=== PATIENT | male | born 1965 ===

== ENCOUNTER → 2022-01-17 15:54 | Outpatient (BNVA) | payer BC, SELFPAY | PROVIDERS: PCP Internal Medicine; Referring Provider Internal Medicine; Visit Provider Surgery | DX: Z13.89 Encounter for screening for other disorder (principal) ==

== ENCOUNTER 2022-06-29 06:14 | Day surgery (SDC) | payer BC, SELFPAY ==
[2022-06-25 14:55] VITALS: BMI 27.8
--- NOTE | 2022-06-28 14:11 | P.CONAN_ITS ---
Documented by User: Ioana Linton NP 06/28/22 14:12 HPI - Anesthesia Eval Consult details Narrative: 56yo M for Colonoscopy with Poss Polypectomy PMFSH Active Problems Active Problems: All Active Problems (Updated 01/17/22 @ 16:30 by Davis Mora MD) Physical exam (Acute) COVID-19 virus infection (Acute) Hyperlipidemia (Acute) Tubular adenoma (Acute) Plantar fasciitis (Acute) History of adenomatous polyp of colon (Acute) Past Medical History Medical History History of adenomatous polyp of colon Family History Family History Mother Breast cancer Surgical History Surgical History H/O colonoscopy History of appendectomy History of repair of ACL Social History Social History Housing: House Alcohol intake: current Alcohol intake frequency: a few times a month Alcohol type: beer Patient Tobacco Use Status: Never used Tobacco e-Cigarette/Vaping Use: Never Used Second Hand Smoke Exposure: No Use of substances other than those prescribed or required for medical reasons: No Are you DNR?: No Advance Directives: No Advance Directives Information Provided: Yes service: No 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 Cognitive needs: No Hearing needs: No Vision needs: Yes (Glasses) Meds Allergies Allergy/AdvReac Type Severity Reaction Status Date / Time No Known Allergies Allergy Verified 06/29/22 06:38 [No Known Allergies*] Exam Exam Date and Time: June 28, 2022 1411 Height,Weight and Vital Signs: Height 5 ft 11 in Weight 90.718 kg Assessment and Plan Assessment Anesthesia Assessment: Chart Reviewed Documented by User: Madison Cuadra MD 06/29/22 07:54 [facility] Past Medical History Medical History History of adenomatous polyp of colon Family History Family History Mother Breast cancer Family history of problems with anesthesia: No Surgical History Surgical History H/O colonoscopy History of appendectomy History of repair of ACL History of Problems with Anesthesia: Yes (Post-op nausea ) Social History Social History Housing: House Alcohol intake: current Alcohol intake frequency: a few times a month Alcohol type: beer Patient Tobacco Use Status: Never used Tobacco e-Cigarette/Vaping Use: Never Used Second Hand Smoke Exposure: No Use of substances other than those prescribed or required for medical reasons: No Are you DNR?: No Advance Directives: No Advance Directives Information Provided: Yes service: No 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 Cognitive needs: No Hearing needs: No Vision needs: Yes (Glasses) Meds Allergies Allergy/AdvReac Type Severity Reaction Status Date / Time No Known Allergies Allergy Verified 06/29/22 06:38 [No Known Allergies*] Exam Height,Weight and Vital Signs: Height 5 ft 11 in Weight 90.718 kg Vital Signs Temp Pulse Resp BP Pulse Ox O2 Del Method 06/29/22 06:44 97.4 F 57 16 121/77 99 Room Air Airway Mallampati Class: III TM Dist: >3cm Neck ROM: Full Loose/Missing/Broken Teeth: No (Implants intact) Heart: RRR Lungs: CTAB Assessment and Plan Assessment Anesthesia Assessment: Anesthesia Plan Discussed Final Anesthetic Review Family History of Problems with Anesthesia: No History of Problems with Anesthesia: Yes (Post-op nausea ) NPO: No ASA Class: II Final Preanesthetic Review: No Changes in Pt Med Stat, Meds/Allgs Chart Reviewed, Consent Obtained/Reviewed and Anes Risks/Benef Reviewed Patient Risk: Low Procedure Risk: Low Assessment/Block/Sedation in SS: Assess/Block/Sedation-SS Anesthetic Plan Anesthetic Plan: MAC: Disposition: Standard PACU
[2022-06-29 06:44] VITALS: BP 121/77; PULSE 57; RESP 16; TEMP 36.3; O2SAT 99; BMI 26.7
[2022-06-29] MEDS: Lactated Ringers 1,000 ML 100 ML IVCONT (07:05)
--- NOTE | 2022-06-29 07:21 | MHC.SHP ---
Pre-Procedural Eval Section A Date of Service: 06/29/22 The patient is an INPATIENT: No Changes since office visit: No Cold of Flu in the past 2 weeks, No New Medical Problems, No Changes in Medication and No Patient answered all questions The History & Physical has been completed within 30 days and I have reviewed it.: Yes Section B Chief Complaint: Personal history of colonic polyps Allergies: Allergies Allergy/AdvReac Type Severity Reaction Status Date / Time No Known Allergies Allergy Verified 06/29/22 06:38 [No Known Allergies*] Plan I have reviewed the history and physical and performed a pertinent physical examination on my patient. No changes have occurred unless specified.
--- NOTE | 2022-06-29 07:24 | MHC.SHP ---
Pre-Procedural Eval Section A Date of Service: 06/29/22 Section B Chief Complaint: Personal history of colonic polyps Details of Present Illness: had tubular adenoma in 2016 Relevant Family History (Specify if Yes): No Relevant Social History: None Present Medications: see Short Stay Collaborative assessment Medical History: Significant History (hyperlipidemia) Allergies: Allergies Allergy/AdvReac Type Severity Reaction Status Date / Time No Known Allergies Allergy Verified 06/29/22 06:38 [No Known Allergies*] Review of Systems Sugical H&P ROS: Negative: Constitution, Cardiovascular, Respiratory, Neurological, Psychiatric, Hem-Onc, Allergic/Immunologic, Gastrointestinal, Genitourinary, Musculoskeletal, Integumentary, Endocrine and Eyes/Ears/Nose/Throat Exam Surgical H&P Exam: Normal: HEENT, Normal: Heart, Normal: Lungs, Normal: Extremities, Normal: Abdomen, Normal: Skin and Normal: Neurological Plan Diagnosis/Plan: Unchanged I have reviewed the history and physical and performed a pertinent physical examination on my patient. No changes have occurred unless specified.
--- NOTE | 2022-06-29 07:56 | W.PM.OPN ---
Operative Note Operative Note Date of Service: 06/29/22 Narrative: Preop diagnosis: History of tubular adenoma Postop diagnosis: Normal colonoscopy findings Procedure: Colonoscopy for screening Surgeon: Davis Mora MD The patient is a 56-year-old male who had a tubular adenoma in 2016. I had recommended a short bevel follow-up colonoscopy. He understood the technique of the procedure as well as the risks, benefits, and alternatives. The patient was brought to the operating room and placed in left lateral decubitus position under monitored anesthesia care. A surgical time-out was done. A full digital rectal exam was done and this did not reveal any significant anal lesions. The tip of the Olympus colonoscope was gently introduced through the anal orifice advanced with insufflation all the way to the cecum. The cecum was intubated. The cecum was identified by visualization of the ileocecal valve as well as the appendiceal orifice. The cecal mucosa was unremarkable. The scope was gradually withdrawn with careful examination of the entire colonic mucosa being done with scope withdrawal. The patient had adequate bowel prep so it was unlikely that any lesion may have been missed. The rectum was reached and there were no lesions seen. The anal canal was unremarkable. The scope was then withdrawn completely with desufflation The patient tolerated Theprocedure well. There were no immediate complications. [His] next colonoscopy may be in the next [10] years.
[2022-06-29 08:02] VITALS: BP 116/69; PULSE 56; RESP 16; TEMP 37.3; O2SAT 100
[2022-06-29 08:17] VITALS: BP 118/80; PULSE 55; RESP 16; TEMP 36.6; O2SAT 99
== END 2022-06-29 08:50 | disposition home or self-care (01) ==
PROVIDERS: PCP Internal Medicine; Visit Provider Surgery
PROC: 0DBE8ZZ Excision of Large Intestine, Via Natural or Artificial Opening Endoscopic (ICD-10-PCS; CPT 45378; principal; 2022-06-29 07:30)
DX: Z12.11 Encounter for screening for malignant neoplasm of colon (principal); Z86.010 Personal history of colon polyps; E78.5 Hyperlipidemia, unspecified; M72.2 Plantar fascial fibromatosis; Z86.16 Personal history of COVID-19
CPT/HCPCS: 45378

== ENCOUNTER 2023-01-29 05:57 | Outpatient (REF) | payer BC, SELFPAY ==
[2023-01-29 06:07] LABS: MANUAL DIFF FLAG NO
[2023-01-29 07:34] LABS: Basophils Percent Auto 0.2 % (0-2); Eosinophils Absolute Auto 0.1 X10*3/uL (0.0-0.4); Eosinophils Percent Auto 1.7 % (0-4); Hemoglobin 14.9 g/dl (14.0-18.0); Imm Gran Abs Auto 0.01 X10*3/uL (0.00-0.03); Imm Gran Pct Auto 0.2 % (0.0-0.4); Lymphocytes Absolute Auto 1.2 X10*3/uL (1.2-4.9); Lymphocytes Percent Auto 30.1 % (20-40); Mean Corpuscular HGB Conc 33.9 g/dl (31.0-36.0); Mean Corpuscular Hemoglobin 30.9 pg (27.0-33.0); Mean Corpuscular Volume 91.3 fL (80.0-98.0); Mean Platelet Volume 10.1 fL (9.4-12.4); Monocytes Absolute Auto 0.4 X10*3/uL (0.1-1.2); Monocytes Percent Auto 10.5 % (2-11); Neutrophils Absolute Auto 2.3 x10*3/uL (2.0-8.3); Neutrophils Percent Auto 57.3 % (45-73); Platelet Count 180 X10*3/uL (160-400); Red Blood Count 4.82 X10*6/uL (4.60-5.80); Red Cell Distribution Width 12.6 % (11.0-16.0); White Blood Count 4.1 X10*3/uL (4.8-10.8)
[2023-01-29 07:35] LABS: Appearance Urine Clear; Color Urine Yellow; Glucose Urine UA Negative (Negative); Leukocyte Esterase Urine Negative (Negative); Nitrite Urine Negative (Negative); PH 5.5 (5.0-9.0); Specific Gravity - Urine >= 1.030 (1.005-1.025); Urine Blood Negative (Negative); Urine Ketones Negative (Negative); Urine Protein Negative (Neg-Trace)
[2023-01-29 12:18] LABS: Alanine Aminotransferase 26 U/L (0-40); Albumin Level 4.2 g/dL (3.5-5.0); Alkaline Phosphatase 39 U/L (39-117); Anion Gap 8 (12-20); Aspartate Amino Transferase 30 U/L (5-37); Bilirubin Total 0.9 mg/dL (0.0-1.0); Blood Urea Nitrogen 22 mg/dL (9-16); Calcium 9.3 mg/dL (8.4-10.2); Carbon Dioxide 30 mmol/L (22-29); Chloride 107 mmol/L (96-108); Cholesterol 232 mg/dL; Estimated Glomerular Filt Rate > 60; Glucose Fasting 91 mg/dL (60-99); HDL Cholesterol 57 mg/dL; LDL Cholesterol Calculated 158 mg/dl; Potassium 4.3 mmol/L (3.3-5.1); Sodium 141 mmol/L (135-145); Total Protein 6.6 g/dL (6.5-8.0); Triglycerides 89 mg/dL
[2023-01-29 12:20] LABS: Prostate Specific Antigen Scr 0.43 ng/mL (<0.05-4.0); TSH reflex Free T4 1.03 uIU/mL (0.32-4.0); Vitamin D 25-OH Total 25.7 ng/mL (>30)
== END 2023-01-29 05:58 | disposition home or self-care (01) ==
LOC: HO.LAB 05:57
PROVIDERS: PCP Internal Medicine; Visit Provider Internal Medicine
DX: Z00.00 Encounter for general adult medical examination without abnormal findings (principal); Z12.5 Encounter for screening for malignant neoplasm of prostate; R30.0 Dysuria; E55.9 Vitamin D deficiency, unspecified; E78.00 Pure hypercholesterolemia, unspecified
CPT/HCPCS: 36415; 80053; 80061; 81003; 82306; 84153; 84443; 85025

== ENCOUNTER 2023-06-11 12:25 | Outpatient (REF) | payer BC, SELFPAY | END 2023-06-11 12:26 | disposition home or self-care (01) | LOC: HO.SH 12:25 | PROVIDERS: Visit Provider Internal Medicine | DX: Z01.118 Encounter for examination of ears and hearing with other abnormal findings (principal); H90.3 Sensorineural hearing loss, bilateral; H93.13 Tinnitus, bilateral | CPT/HCPCS: 92557; 92567 ==

== ENCOUNTER 2023-08-07 15:42 | Outpatient (AMB) | payer BC, SELFPAY ==
[2023-08-07 15:46] VITALS: BP 148/80; PULSE 59; O2SAT 99; BMI 28.4
--- NOTE | 2023-08-07 15:46 | MHC.PC.OV ---
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 Accompanied by: Self / Same As Patient Allergies atorvastatin Adverse Reaction (Intermediate, Uncoded 08/07/23 16:25) muscle weakness, cramps Medication List - Last Reconciled 08/08/23 by Sonu Arauz MD No Known Home Meds Tobacco use date assessed: 08/07/23 Dental Screening Dental Screen Date: 08/07/23 Did you have a dental visit in the last 12 months?: Yes Did you have a dental problem in the last 6 months where you did not have access to dental care?: No Was dental information given to patient?: Patient has dentist HPI 6 month f/u HPI Details Patient comes in today for his follow up visit States that he feels okay He denies any headaches or dizziness Denies any chest pains, no SOB No nausea/vomiting, no abdominal pain No change in bowel habits noted Notes (+) on and off cramping pain over the medial aspect of his thighs lately - notes that these seem to occur more often at night when he is home from work Denies any recent injury or trauma to his lower extremities and states that he has not noticed any swelling of his feet and denies any cramping pain in his lower extremities when he is walking or moving about Had his follow up labs done back in January 2023 after his last visit and has not had any other labs done since [facility] Medical History Overweight (BMI 25.0-29.9) Pure hypercholesterolemia History of adenomatous polyp of colon Surgical History History of colonoscopy (~06/29/22) H/O colonoscopy (~09/2015) History of appendectomy History of repair of ACL Family History Mother Breast cancer Social History Housing: House Alcohol intake: current Alcohol intake frequency: a few times a month Alcohol type: beer Patient Tobacco Use Status: Never used Tobacco e-Cigarette/Vaping Use: Never Used Second Hand Smoke Exposure: No service: No 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 1. Little interest or pleasure in doing things: not at all 2. Feeling down, depressed, or hopeless: not at all 3. Trouble falling or staying asleep, or sleeping too much: not at all 4. Feeling tired or having little energy: not at all 5. Poor appetite or overeating: not at all 6. Feeling bad about yourself - or that you are a failure or have let yourself or your family down: not at all 7. Trouble concentrating on things, such as reading the newspaper or watching television: not at all 8. Moving or speaking so slowly that other people could have noticed. Or the opposite - being so fidgety or restless that you have been moving around a lot more than usual: not at all 9. Thoughts that you would be better off or of hurting yourself in some way: not at all Total score: 0 Depression Screening Interpretation: Negative Depression Screening Done: Yes 32364 - PHQ-9 Billing: Yes Source: Developed by Drs. Mina Kauffman, Smiley Marrero, Cristobal Jeffers and colleagues, with an educational charles from [email or web address]. Thrive Questionnaire Date Thrive assessed: 08/07/23 I am a: Patient What is your living situation today?: I have a steady place to live Within the past 12 months, did the food you bought not last and you didn't have the money to get more?: Never true Within the past 12 months, did you worry whether your food would run out before you got money to buy more?: Never true Do you have trouble paying for medicines?: No Do you have trouble getting transportation to medical appointments?: No Do you have trouble paying your heating and electricity bill?: No Do you have trouble taking care of your child, family member or friend?: No Do you have trouble with day-to-day activities such as bathing, preparing meals, shopping, managing finances, etc.?: No Are you currently unemployed and looking for a job?: No Are you interested in more education?: No Please select the resources that you would like help with: None Currently or been in a relationship where the following occur: no concerns reported AUDIT C Alcohol Use Questionnaire (AUDIT-C) 1. How often do you have a drink containing alcohol?: 2-3 times a week Total Score: 3 Score Reviewed/Action Taken: Yes FADI-7 AMB Questionnaire FADI-7 Date FADI - 7 assessed: 08/07/23 Feeling nervous, anxious, or on edge: 0 = Not at all Not being able to stop or control worryin = Not at all Worrying too much about different things: 0 = Not at all Trouble relaxin = Not at all Being so restless that it is hard to sit still: 0 = Not at all Becoming easily annoyed or irritable: 0 = Not at all Feeling afraid as if something awful might happen: 0 = Not at all Total FADI-7 score (0-4 normal; 5-9 mild; 10-14 moderate; 15-21 severe): 0 Source: Developed by Drs. Mina Kauffman, Smiley Marrero, Cristobal Jeffers and colleagues, with an educational charles from [email or web address]. FADI-7 Assessment Billing FADI-7 Assessment Tool: FADI-7 Assessment 28484 Review of Systems Const Denies chills, Denies fatigue, Denies fever(s) and Denies headache(s) ENT Denies dysphagia, Denies dizziness, Denies otalgia, Denies headache(s), Denies neck pain, Denies odynophagia, Reports tinnitus (persistent, bilaterally) and Denies sore throat Card Denies chest pain, Denies palpitations and Denies dyspnea Resp Denies cough and Denies dyspnea GI Denies abdominal pain, Denies constipation, Denies dysphagia, Denies heartburn, Denies diarrhea, Denies nausea, Denies odynophagia and Denies vomiting Denies dysuria, Denies nocturia and Denies urinary frequency Musc Reports muscle cramps (on and off over the medial aspect of thighs, often at night) and Denies neck pain Skin/Breast Denies rash Neuro Denies dizziness and Denies headache(s) Endo Denies fatigue and Denies palpitations Physical exam (Primary Care) Vital Signs: Last Vital Signs Pulse 59 08/07/23 15:46 BP 132/88 08/07/23 16:34 Pulse Ox 99 08/07/23 15:46 Oxygen Delivery Method Room Air 08/07/23 15:46 BMI result Body Mass Index 28.4 Tobacco/Smoking Status: Tobacco use Status Tobacco use date assessed 08/07/23 08/07/23 15:49 Patient Tobacco Use Status Never used Tobacco 08/07/23 15:49 e-Cigarette/Vaping Use Never Used 08/07/23 15:49 PHQ-9: PHQ-9 Score PHQ-9: Total score 0 08/08/23 05:52 Depression Screening Interpretation: Negative Thrive Assessment: Date of Thrive Assessment Date Thrive assessed 08/07/23 08/07/23 15:49 Currently or been in a relationship where the following occur: no concerns reported Const General: no acute distress and alert HENMT Ears: TM's normal bilaterally and EAC's normal Throat: Yes posterior oropharynx normal and Yes tonsils normal (no TP congestion) Neck Neck: Yes no lymphadenopathy and Yes supple Resp Auscultation: clear to auscultation bilaterally, no rales and no wheezes Cardio Rate: regular rate Rhythm: regular rhythm Heart sounds: no murmurs GI Palpation (GI): Soft to palpation, nontender and No hepatosplenomegaly present Skin General skin exam: no rashes or lesions noted Extrem General: Yes no clubbing, cyanosis or edema Results Reviewed Results Reviewed: Laboratory Tests 01/29/23 01/29/23 01/29/23 06:03 06:05 06:05 WBC 4.1 L Hgb 14.9 Hct 44.0 Plt Count 180 Sodium 141 Potassium 4.3 Creatinine 0.88 Estimated GFR > 60 Fasting Glucose 91 Calcium 9.3 AST 30 ALT 26 Triglycerides 89 Cholesterol 232 LDL Cholesterol, Calc 158 HDL Cholesterol 57 PSA Screen 0.43 25-OH Vitamin D Total 25.7 TSH 1.03 Ur Specific [place] >= 1.030 H Urine Protein Negative Urine Glucose (UA) Negative Urine Ketones Negative Urine Blood Negative Assessment and Plan Assessment & Plan (1) Pure hypercholesterolemia: Code(s): E78.00 - Pure hypercholesterolemia, unspecified Plan: Results of his labs done back in January 2023 reviewed and discussed with patient Advised that his LDL and total cholesterol numbers were still elevated (LDL at 158 mg/dl and total cholesterol at 232 mg/dl) although they have improved slightly from his numbers back in 2018 Reinforced low cholesterol diet Will send him for to recheck his labs and fasting lipids [facility] for follow up - again recommended a total cholesterol of less than 200 mg/dl and LDL cholesterol of at least 130 mg/dl or less but ideally less than 100 mg/dl as goals Will have patient recheck his fasting lipid profile again in 6 months for follow up (2) Tinnitus, bilateral: Code(s): H93.13 - Tinnitus, bilateral Plan: Advised again that his tinnitus is most likely a symptom of hearing loss, which patient states that he's had for years now He was referred for a hearing evaluation and they have confirmed with him his hearing loss States that he is not yet at a point where he will need hearing aids but is aware that he will need amplification at some point (3) Bilateral leg cramps: Code(s): R25.2 - Cramp and spasm Plan: Advised that his on and off cramping pain over the medial aspect of his thighs are most likely just simple muscle cramping, likely due to muscle fatigue as he is on his feet at work all day Advised that his pedal pulses are normal and he has no lower extremity edema so circulatory issues are unlikely in his case Will include some additional labs to look into this and he can get these done together with his other routine labs [facility] (4) Overweight (BMI 25.0-29.9): Code(s): E66.3 - Overweight Plan: Reinforced diet/exercise as tolerated/lose weight Plan To return in 6 months for his next annual physical examination Orders: Orders Vitamin B12 and Folate 08/07/23 E53.8 - Deficiency of other specified B group vitamins, M79.10 - Myalgia, unspecified site, R25.2 - Cramp and spasm Vitamin D 25-OH Total 08/07/23 E55.9 - Vitamin D deficiency, unspecified, M79.10 - Myalgia, unspecified site, R25.2 - Cramp and spasm C Reactive Protein 08/07/23 M79.10 - Myalgia, unspecified site, R25.2 - Cramp and spasm Complete Blood Count Auto Diff 6 Months I10 - Essential (primary) hypertension, Z00.00 - Encounter for general adult medical examination without abnormal findings Comprehensive [place]. Panel Fast 6 Months E78.00 - Pure hypercholesterolemia, unspecified, Z00.00 - Encounter for general adult medical examination without abnormal findings Lipid Panel 6 Months E78.00 - Pure hypercholesterolemia, unspecified, Z00.00 - Encounter for general adult medical examination without abnormal findings TSH reflex Free T4 6 Months E78.00 - Pure hypercholesterolemia, unspecified, Z00.00 - Encounter for general adult medical examination without abnormal findings UA CC w/rflx Micro + Cult 6 Months R30.0 - Dysuria, Z00.00 - Encounter for general adult medical examination without abnormal findings Prostate Specific Antigen Scr 6 Months Z00.00 - Encounter for general adult medical examination without abnormal findings Complete Blood Count Auto Diff 08/07/23 I10 - Essential (primary) hypertension, M79.10 - Myalgia, unspecified site, R25.2 - Cramp and spasm TSH reflex Free T4 08/07/23 E78.00 - Pure hypercholesterolemia, unspecified, M79.10 - Myalgia, unspecified site, R25.2 - Cramp and spasm Magnesium 08/07/23 E83.42 - Hypomagnesemia, M79.10 - Myalgia, unspecified site, R25.2 - Cramp and spasm Erythrocyte Sedimentation Rate 08/07/23 M79.10 - Myalgia, unspecified site, M79.7 - Fibromyalgia, R25.2 - Cramp and spasm CK, Total+Isoenzymes, Serum 08/07/23 M79.10 - Myalgia, unspecified site, R25.2 - Cramp and spasm Vitamin D 25-OH Total 6 Months E55.9 - Vitamin D deficiency, unspecified, Z00.00 - Encounter for general adult medical examination without abnormal findings Coding Level of Care Code Est Pt Level 4 (07356) Diagnoses Pure hypercholesterolemia E78.00 Tinnitus, bilateral H93.13 Bilateral leg cramps R25.2 Overweight (BMI 25.0-29.9) E66.3 Additional Codes FADI-7 Assessment Billing - FADI-7 Assessment Tool: FADI-7 Assessment [id number] ([id number])
[2023-08-07 16:34] VITALS: BP 132/88
== END 2023-08-07 16:38 | disposition home or self-care (01) ==
PROVIDERS: Visit Provider Internal Medicine
DX: E78.00 Pure hypercholesterolemia, unspecified (principal); H93.13 Tinnitus, bilateral; R25.2 Cramp and spasm; E66.3 Overweight
CPT/HCPCS: 99214

== ENCOUNTER 2024-05-14 07:33 | Outpatient (REF) | payer BC, SELFPAY ==
[2024-05-14 07:49] LABS: MANUAL DIFF FLAG NO
[2024-05-14 08:15] LABS: Basophils Percent Auto 0.7 % (0-2); Eosinophils Absolute Auto 0.1 X10*3/uL (0.0-0.4); Eosinophils Percent Auto 2.1 % (0-4); Hematocrit 45.7 % (42.0-52.0); Hemoglobin 15.4 g/dl (14.0-18.0); Imm Gran Abs Auto 0.01 X10*3/uL (0.00-0.03); Imm Gran Pct Auto 0.2 % (0.0-0.4); Lymphocytes Absolute Auto 1.2 X10*3/uL (1.2-4.9); Lymphocytes Percent Auto 27.8 % (20-40); Mean Corpuscular HGB Conc 33.7 g/dl (31.0-36.0); Mean Corpuscular Hemoglobin 30.9 pg (27.0-33.0); Mean Corpuscular Volume 91.8 fL (80.0-98.0); Mean Platelet Volume 9.6 fL (9.4-12.4); Monocytes Absolute Auto 0.4 X10*3/uL (0.1-1.2); Monocytes Percent Auto 10.4 % (2-11); Neutrophils Absolute Auto 2.5 x10*3/uL (2.0-8.3); Neutrophils Percent Auto 58.8 % (45-73); Platelet Count 213 X10*3/uL (160-400); Red Blood Count 4.98 X10*6/uL (4.60-5.80); Red Cell Distribution Width 12.9 % (11.0-16.0); White Blood Count 4.2 X10*3/uL (4.8-10.8)
[2024-05-14 08:19] LABS: Appearance Urine Clear; Color Urine Yellow; Glucose Urine UA Negative (Negative); Leukocyte Esterase Urine Trace (Negative); Nitrite Urine Negative (Negative); Specific Gravity - Urine 1.025 (1.005-1.025); UMIC TRIGGER UACC YES; Urine Blood Negative (Negative); Urine Ketones Negative (Negative); Urine Protein Negative (Neg-Trace)
[2024-05-14 08:28] LABS: Bacteria Urine None Seen (None Seen); Hyaline Casts Urine 0-2 /LPF (0-2); RBC Urine 0-2 /HPF (0-2); Squamous Epithelial Cell Urine 0-2 /HPF (0-2); WBC Urine 0-5 /HPF (0-5)
[2024-05-14 08:49] LABS: Alanine Aminotransferase 23 U/L (0-40); Albumin Level 4.4 g/dL (3.5-5.0); Alkaline Phosphatase 43 U/L (39-117); Anion Gap 12 (12-20); Aspartate Amino Transferase 28 U/L (5-37); Bilirubin Total 0.7 mg/dL (0.0-1.0); Blood Urea Nitrogen 21 mg/dL (9-16); C Reactive Protein < 0.10 mg/dL (< or = 0.50); Calcium 10.1 mg/dL (8.4-10.2); Carbon Dioxide 29 mmol/L (22-29); Chloride 105 mmol/L (96-108); Cholesterol 257 mg/dL (<200); Estimated Glomerular Filt Rate > 60; Glucose Fasting 94 mg/dL (60-99); HDL Cholesterol 63 mg/dL (>40); LDL Cholesterol Calculated 171 mg/dL (<100); Magnesium 2.1 mg/dL (1.6-2.6); Potassium 4.6 mmol/L (3.3-5.1); Sodium 141 mmol/L (135-145); Total Protein 7.4 g/dL (6.5-8.0); Triglycerides 118 mg/dL (<150)
[2024-05-14 08:54] LABS: Erythrocyte Sedimentation Rate 4 MM/HR (0-15)
[2024-05-14 09:04] LABS: TSH reflex Free T4 1.06 uIU/mL (0.32-4.0); Vitamin D 25-OH Total 33.6 ng/mL (>30)
[2024-05-14 09:19] LABS: Folate 7.6 ng/mL (> or = 4.0); Prostate Specific Antigen Scr 0.65 ng/mL (<0.05-4.0); Vitamin B12 581 pg/mL (200-900)
[2024-05-19 23:08] LABS: CK-BB None Detected (None Detected); CK-MB 0 % (<5); CK-MM 95 % (95-100); Creatine Kinase Isoenzyme Itrp MACRO CK TYPE 1; Creatine Kinase,Total,Serum 274 U/L (44-196)
== END 2024-05-14 07:34 | disposition home or self-care (01) ==
LOC: HO.LAB 07:33
PROVIDERS: PCP Internal Medicine; Visit Provider Internal Medicine
DX: Z00.00 Encounter for general adult medical examination without abnormal findings (principal); E78.00 Pure hypercholesterolemia, unspecified; R25.2 Cramp and spasm; E53.8 Deficiency of other specified B group vitamins; I10 Essential (primary) hypertension; E83.42 Hypomagnesemia; M79.7 Fibromyalgia; Z12.5 Encounter for screening for malignant neoplasm of prostate
CPT/HCPCS: 36415; 80053; 80061; 81001; 82306; 82552; 82607; 82746; 83735; 84153; 84443; 85025; 85652; 86140

== ENCOUNTER 2024-06-23 16:34 | Outpatient (AMB) | payer BC, SELFPAY ==
[2024-06-23 16:35] VITALS: BP 116/80; PULSE 58; O2SAT 98; BMI 28.2
--- NOTE | 2024-06-23 16:35 | MHC.PC.OV ---
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: No Accompanied by: Self / Same As Patient Allergies atorvastatin Adverse Reaction (Intermediate, Uncoded 06/23/24 16:53) muscle weakness, cramps Medication List - Last Reconciled 06/23/24 by Sonu Arauz MD No Known Home Meds Tobacco use date assessed: 06/23/24 Dental Screening Dental Screen Date: 06/23/24 Did you have a dental visit in the last 12 months?: Yes Did you have a dental problem in the last 6 months where you did not have access to dental care?: No Was dental information given to patient?: Patient has dentist HPI annual exam HPI Details Patient comes in today for his annual physical examination States that he feels okay He denies any headaches or dizziness Denies any chest pains, no SOB No nausea/vomiting, no abdominal pain No change in bowel habits noted Denies any acute urinary symptoms He had his follow up labs done last month - to discuss his results He is currently up-to-date with his screening colonoscopy - this was last done with Dr. Mora a couple of years ago on 06/29/2022 and his next colonoscopy will be in 10 years (2031) [facility] Medical History Overweight (BMI 25.0-29.9) Pure hypercholesterolemia History of adenomatous polyp of colon Surgical History History of colonoscopy (~06/29/22) H/O colonoscopy (~09/2015) History of appendectomy History of repair of ACL Family History Mother Breast cancer Social History Housing: House Alcohol intake: current Alcohol intake frequency: a few times a month Alcohol type: beer Patient Tobacco Use Status: Never used Tobacco e-Cigarette/Vaping Use: Never Used Second Hand Smoke Exposure: No service: No 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 1. Little interest or pleasure in doing things: not at all 2. Feeling down, depressed, or hopeless: not at all 3. Trouble falling or staying asleep, or sleeping too much: not at all 4. Feeling tired or having little energy: not at all 5. Poor appetite or overeating: not at all 6. Feeling bad about yourself - or that you are a failure or have let yourself or your family down: not at all 7. Trouble concentrating on things, such as reading the newspaper or watching television: not at all 8. Moving or speaking so slowly that other people could have noticed. Or the opposite - being so fidgety or restless that you have been moving around a lot more than usual: not at all 9. Thoughts that you would be better off or of hurting yourself in some way: not at all Total score: 0 Depression Screening Interpretation: Negative Depression Screening Done: Yes 55688 - PHQ-9 Billing: Yes Source: Developed by Drs. Mina Kauffman, Smiley Marrero, Cristobal Jeffers and colleagues, with an educational charles from [employer]. Thrive Questionnaire Date Thrive assessed: 06/23/24 I am a: Patient What is your living situation today?: I have a steady place to live Within the past 12 months, did the food you bought not last and you didn't have the money to get more?: I choose not to answer this question Within the past 12 months, did you worry whether your food would run out before you got money to buy more?: I choose not to answer this question Do you have trouble paying for medicines?: I choose not to answer this question Do you have trouble getting transportation to medical appointments?: I choose not to answer this question Do you have trouble paying your heating and electricity bill?: I choose not to answer this question Do you have trouble taking care of your child, family member or friend?: I choose not to answer this question Do you have trouble with day-to-day activities such as bathing, preparing meals, shopping, managing finances, etc.?: I choose not to answer this question Are you currently unemployed and looking for a job?: I choose not to answer this question Are you interested in more education?: I choose not to answer this question Please select the resources that you would like help with: None Currently or been in a relationship where the following occur: I choose not to answer THRIVE Score: 0 AUDIT C Alcohol Use Questionnaire (AUDIT-C) 1. How often do you have a drink containing alcohol?: 2-4 times a month 2. How many drinks containing alcohol do you have on a typical day when you are drinking?: 3 or 4 3. How often do you have six or more drinks on one occasion?: Never Total Score: 3 Score Reviewed/Action Taken: Yes FADI-7 AMB Questionnaire FADI-7 Date FADI - 7 assessed: 06/23/24 Feeling nervous, anxious, or on edge: 0 = Not at all Not being able to stop or control worryin = Not at all Worrying too much about different things: 0 = Not at all Trouble relaxin = Not at all Being so restless that it is hard to sit still: 0 = Not at all Becoming easily annoyed or irritable: 0 = Not at all Feeling afraid as if something awful might happen: 0 = Not at all Total FADI-7 score (0-4 normal; 5-9 mild; 10-14 moderate; 15-21 severe): 0 Source: Developed by Drs. Mina Kauffman, Smiley Marrero, Cristobal Jeffers and colleagues, with an educational charles from [employer]. FADI-7 Assessment Billing FADI-7 Assessment Tool: FADI-7 Assessment 20096 Review of Systems Const Denies chills, Denies fatigue, Denies fever(s), Denies headache(s), Denies malaise and Denies weakness Eyes Denies blurry vision, Denies change in vision, Denies irritation and Denies itchy eyes ENT Denies dysphagia, Denies dizziness, Denies otalgia, Denies headache(s), Denies nasal congestion, Denies neck pain, Denies odynophagia and Denies sore throat Card Denies chest pain, Denies rapid heart rate, Denies irregular heart rhythm, Denies palpitations and Denies dyspnea Resp Denies chest congestion, Denies cough, Denies dyspnea and Denies wheezing GI Denies abdominal pain, Denies bloating, Denies constipation, Denies dysphagia, Denies heartburn, Denies diarrhea, Denies nausea, Denies odynophagia and Denies vomiting Denies hematuria, Denies difficulty urinating, Denies dysuria, Denies urinary frequency and Denies urinary urgency Musc Denies back pain, Denies arthralgias, Denies joint swelling, Denies muscle weakness and Denies neck pain Skin/Breast Denies change in pigmentation, Denies lesions, Denies rash and Denies unusual bruising Neuro Denies dizziness, Denies headache(s), Denies paresthesias and Denies weakness Endo Denies fatigue and Denies palpitations Aller/Immun Denies itchy eyes and Denies wheezing Physical exam (Primary Care) Vital Signs: Last Vital Signs Pulse 58 06/23/24 16:35 BP 116/80 06/23/24 16:35 Pulse Ox 98 06/23/24 16:35 Oxygen Delivery Method Room Air 06/23/24 16:35 BMI result Body Mass Index 28.2 Tobacco/Smoking Status: Tobacco use Status Tobacco use date assessed 06/23/24 06/23/24 16:37 Patient Tobacco Use Status Never used Tobacco 06/23/24 16:37 e-Cigarette/Vaping Use Never Used 06/23/24 16:37 PHQ-9: PHQ-9 Score PHQ-9: Total score 0 06/23/24 17:07 Depression Screening Interpretation: Negative Thrive Assessment: Date of Thrive Assessment Date Thrive assessed 06/23/24 06/23/24 16:37 Currently or been in a relationship where the following occur: I choose not to answer Const General: no acute distress, alert and awake Orientation/consciousness: patient oriented x3 HENMT Head: Yes normocephalic and Yes atraumatic Ears: external ears normal, TM's normal bilaterally and EAC's normal General nose exam: No nasal discharge present Face and sinus: Yes normal facial exam and Yes sinuses nontender Teeth and gingiva: dentition normal Throat: Yes posterior oropharynx normal and Yes tonsils normal (no TP congestion) Eyes Eyelids: Yes eyelids normal Conjunctivae: conjunctivae normal Pupils: Equal, round and reactive pupils present EOM: EOMs intact bilaterally Neck Neck: Yes no lymphadenopathy and Yes supple Thyroid: Thyroid normal Resp Auscultation: clear to auscultation bilaterally, no rales and no wheezes Cardio Rate: regular rate Rhythm: regular rhythm Heart sounds: no murmurs GI Palpation (GI): Soft to palpation, nontender and No hepatosplenomegaly present Auscultation: normal bowel sounds General: Yes no CVA tenderness Back/Spine/Pelvis Back: no CVA tenderness Thoracic/Lumbar Spine: thoracic and lumbar spine normal to inspection Skin Lesions: no lesions Rashes: no rashes Neuro General: patient oriented x3, moves all extremities, no focal motor deficits and CN's II-XI intact bilaterally Cranial nerves: Yes Equal, round and reactive pupils present Cognition (Neuro): normal cognition Gait exam (Neuro): Normal gait present Extrem General: Yes no clubbing, cyanosis or edema Results Reviewed Results Reviewed: Laboratory Tests 05/14/24 05/14/24 07:39 07:45 WBC 4.2 L Hgb 15.4 Hct 45.7 Plt Count 213 ESR 4 Sodium 141 Potassium 4.6 Creatinine 0.91 Estimated GFR > 60 Fasting Glucose 94 Calcium 10.1 D Magnesium 2.1 AST 28 ALT 23 Total Creatine Kinase 274 H C-Reactive Protein < 0.10 Triglycerides 118 Cholesterol 257 H LDL Cholesterol, Calc 171 H HDL Cholesterol 63 PSA Screen 0.65 Vitamin B12 581 25-OH Vitamin D Total 33.6 TSH 1.06 Ur Specific [place] 1.025 Urine Protein Negative Urine Glucose (UA) Negative Urine Blood Negative Urine Nitrite Negative Ur Leukocyte Esterase Trace H Coding Level of Care Code Est Pt Prev Care 40-64y(75708) Diagnoses Annual physical exam Z00.00 Pure hypercholesterolemia E78.00 Tinnitus, bilateral H93.13 Overweight (BMI 25.0-29.9) E66.3 Additional Codes FADI-7 Assessment Billing - FADI-7 Assessment Tool: FADI-7 Assessment 99104 ([id number]) Assessment & Plan Assessment & Plan (1) Annual physical exam: Code(s): Z00.00 - Encounter for general adult medical examination without abnormal findings Category: Medical Plan: Results of his labs done last month reviewed and discussed with patient He is up-to-date with his cancer screenings - his colonoscopy was last done a couple of years ago on 06/29/[address] Mora and his next colonoscopy will be in 2031 (10 year recall) (2) Pure hypercholesterolemia: Code(s): E78.00 - Pure hypercholesterolemia, unspecified Category: Medical Plan: Patient is advised that his cholesterol levels are still significantly elevated on his recent labs, with his total cholesterol at 257 mg/dl and LDL cholesterol at 171 mg/dl Reinforced low cholesterol diet He could not tolerate Atorvastatin when he was started on it last year (severe myalgia and weakness) and he stopped taking the Rx on his own after trying it for a couple of weeks Will start him this time on a trial of Rosuvastatin 5 mg QD - he is advised to stop the Rx immediately and call us up if he starts experiencing again similar symptoms that he had while he was on Atorvastatin If he is unable to tolerate 2 or 3 different statins, we will then consider starting him on one of the new injectable PCSK9 inhibitors Will have him recheck his labs and fasting lipids in 6 months for follow up (3) Tinnitus, bilateral: Code(s): H93.13 - Tinnitus, bilateral Category: Medical Plan: Patient was referred for a hearing evaluation and they have confirmed his hearing loss States that he is not yet at a point where he will need hearing aids but is aware that he will need amplification at some point (4) Overweight (BMI 25.0-29.9): Code(s): E66.3 - Overweight Category: Medical Plan: Reinforced diet/exercise as tolerated/lose weight Plan Follow up in 6 months Orders: Orders Comprehensive Levan. Panel Fast 6 Months E78.00 - Pure hypercholesterolemia, unspecified Lipid Panel 6 Months E78.00 - Pure hypercholesterolemia, unspecified Influenza [id number] Immunization 06/23/24 Z23 - Encounter for immunization Medications: New rosuvastatin 5 mg PO DAILY 30 days 30 tabs 3RF
== END 2024-06-23 17:16 | disposition home or self-care (01) ==
PROVIDERS: PCP Internal Medicine; Visit Provider Internal Medicine
DX: Z00.00 Encounter for general adult medical examination without abnormal findings (principal); E78.00 Pure hypercholesterolemia, unspecified; H93.13 Tinnitus, bilateral; E66.3 Overweight

== ENCOUNTER → 2024-06-23 16:34 | Outpatient (BNVA) | payer BC, SELFPAY | PROVIDERS: PCP Internal Medicine; Visit Provider Internal Medicine | DX: Z00.00 Encounter for general adult medical examination without abnormal findings (principal); E78.00 Pure hypercholesterolemia, unspecified; H93.13 Tinnitus, bilateral; E66.3 Overweight; Z68.28 Body mass index [BMI] 28.0-28.9, adult | CPT/HCPCS: 96127 ==

== ENCOUNTER 2024-12-28 15:25 | Outpatient (AMB) | payer BC, SELFPAY ==
[2024-12-28 15:27] VITALS: BP 134/72; PULSE 56; O2SAT 96; BMI 28.9
--- NOTE | 2024-12-28 15:27 | A.OFFPC_ITS ---
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: Patient has dentist HPI hyperlipidemia HPI Details Patient comes in today for his follow up visit States that he currently feels okay He reports that he stopped taking his Rosuvastatin a few months ago as he also started experiencing increased weakness and aching all over after he was on the medication for a couple of weeks, to how he felt when he was on Atorvastatin in the past He presently denies any headaches or dizziness Denies any chest pains, no shortness of breath No nausea/vomiting, no abdominal pain No change in bowel habits noted He was not able to get his follow-up labs done prior to today's visit [facility] Medical History (Updated 12/29/24 @ 05:29 by Sonu Arauz MD) Hearing loss Overweight (BMI 25.0-29.9) Pure hypercholesterolemia History of adenomatous polyp of colon Surgical History History of colonoscopy (~06/29/22) H/O colonoscopy (~09/2015) History of appendectomy History of repair of ACL Family History Mother Breast cancer Social History Housing: House Alcohol intake: current Alcohol intake frequency: a few times a month Alcohol type: beer Patient Tobacco Use Status: Never used Tobacco e-Cigarette/Vaping Use: Never Used Second Hand Smoke Exposure: No service: No Current occupational status: employed 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 1. Little interest or pleasure in doing things: not at all 2. Feeling down, depressed, or hopeless: not at all 3. Trouble falling or staying asleep, or sleeping too much: not at all 4. Feeling tired or having little energy: not at all 5. Poor appetite or overeating: not at all 6. Feeling bad about yourself - or that you are a failure or have let yourself or your family down: not at all 7. Trouble concentrating on things, such as reading the newspaper or watching television: not at all 8. Moving or speaking so slowly that other people could have noticed. Or the opposite - being so fidgety or restless that you have been moving around a lot more than usual: not at all 9. Thoughts that you would be better off or of hurting yourself in some way: not at all Total score: 0 Depression Screening Interpretation: Negative Depression Screening Done: Yes 99551 - PHQ-9 Billing: Yes Source: Developed by Drs. Mina Kauffman, Smiley Marrero, Cristobal Jeffers and colleagues, with an educational charles from [employer]. Thrive Questionnaire Date Thrive assessed: 12/28/24 I am a: Patient What is your living situation today?: I have a steady place to live Within the past 12 months, did the food you bought not last and you didn't have the money to get more?: I choose not to answer this question Within the past 12 months, did you worry whether your food would run out before you got money to buy more?: I choose not to answer this question Do you have trouble paying for medicines?: I choose not to answer this question Do you have trouble getting transportation to medical appointments?: I choose not to answer this question Do you have trouble paying your heating and electricity bill?: I choose not to answer this question Do you have trouble taking care of your child, family member or friend?: I ch oose not to answer this question Do you have trouble with day-to-day activities such as bathing, preparing meals, shopping, managing finances, etc.?: I choose not to answer this question Are you currently unemployed and looking for a job?: I choose not to answer this question Are you interested in more education?: I choose not to answer this question Please select the resources that you would like help with: None Currently or been in a relationship where the following occur: I choose not to answer THRIVE Score: 0 AUDIT C Alcohol Use Questionnaire (AUDIT-C) 1. How often do you have a drink containing alcohol?: 2-4 times a month 2. How many drinks containing alcohol do you have on a typical day when you are drinking?: 3 or 4 3. How often do you have six or more drinks on one occasion?: Never Total Score: 3 Score Reviewed/Action Taken: Yes FADI-7 AMB Questionnaire FADI-7 Date FADI - 7 assessed: 12/28/24 Feeling nervous, anxious, or on edge: 0 = Not at all Not being able to stop or control worryin = Not at all Worrying too much about different things: 0 = Not at all Trouble relaxin = Not at all Being so restless that it is hard to sit still: 0 = Not at all Becoming easily annoyed or irritable: 0 = Not at all Feeling afraid as if something awful might happen: 0 = Not at all Total FADI-7 score (0-4 normal; 5-9 mild; 10-14 moderate; 15-21 severe): 0 Source: Developed by Drs. Mina Kauffman, Smiley Marrero, Cristobal Jeffers and colleagues, with an educational charles from [employer]. FADI-7 Assessment Billing FADI-7 Assessment Tool: FADI-7 Assessment 19784 Review of Systems Const Denies chills, Denies fatigue, Denies fever(s) and Denies headache(s) ENT Denies dysphagia, Denies dizziness, Denies otalgia, Denies headache(s), Denies neck pain, Denies odynophagia and Denies sore throat Card Denies chest pain, Denies irregular heart rhythm, Denies palpitations and Denies dyspnea Resp Denies chest congestion, Denies cough and Denies dyspnea GI Denies abdominal pain, Denies constipation, Denies dysphagia, Denies heartburn, Denies diarrhea, Denies nausea, Denies odynophagia and Denies vomiting Denies difficulty urinating, Denies dysuria and Denies urinary frequency Musc Denies back pain, Denies arthralgias and Denies neck pain Skin/Breast Denies rash Neuro Denies dizziness, Denies headache(s) and Denies paresthesias Endo Denies fatigue and Denies palpitations Physical exam (Primary Care) Vital Signs: Last Vital Signs Pulse 56 12/28/24 15:27 BP 134/72 12/28/24 15:27 Pulse Ox 96 12/28/24 15:27 Oxygen Delivery Method Room Air 12/28/24 15:27 BMI result Body Mass Index 28.9 Tobacco/Smoking Status: Tobacco use Status Tobacco use date assessed 12/28/24 12/28/24 15:33 Patient Tobacco Use Status Never used Tobacco 12/28/24 15:33 e-Cigarette/Vaping Use Never Used 12/28/24 15:33 PHQ-9: PHQ-9 Score PHQ-9: Total score 0 12/28/24 15:45 Depression Screening Interpretation: Negative Thrive Assessment: Date of Thrive Assessment Date Thrive assessed 12/28/24 12/28/24 15:33 Currently or been in a relationship where the following occur: I choose not to answer Const General: no acute distress and alert HENMT Ears: TM's normal bilaterally and EAC's normal Throat: Yes posterior oropharynx normal and Yes tonsils normal (no TP congestion) Neck Neck: Yes supple and No lymphadenopathy Thyroid: Thyroid normal Resp Auscultation: clear to auscultation bilaterally, no rales and no wheezes Cardio Rate: regular rate Rhythm: regular rhythm Heart sounds: no murmurs GI Palpation (GI): Soft to palpation and nontender Auscultation: normal bowel sounds General: Yes no CVA tenderness Back/Spine/Pelvis Back: no CVA tenderness Skin Rashes: no rashes Extrem General: Yes no clubbing, cyanosis or edema Coding Level of Care Code Est Pt Level 4 (60159) Diagnoses Pure hypercholesterolemia E78.00 Bilateral hearing loss, unspecified hearing loss type H91.93 Hearing loss type: unspecified Laterality: bilateral Overweight (BMI 25.0-29.9) E66.3 Additional Codes FADI-7 Assessment Billing - FADI-7 Assessment Tool: FADI-7 Assessment 49330 ([id number]) PHQ-9 - 23603 - PHQ-9 Billing: Yes ([id number]) Assessment & Plan Assessment & Plan (1) Pure hypercholesterolemia: Code(s): E78.00 - Pure hypercholesterolemia, unspecified Category: Medical Plan: Patient is advised to get his previously ordered labs done ISABEL, especially since he had to stop taking his cholesterol medication a few months ago He is reminded that his cholesterol levels were still significantly elevated, with his total cholesterol at 257 mg/dl and LDL cholesterol at 171 mg/dl when they were last checked last year Reinforced low cholesterol diet He could not tolerate both Atorvastatin and Rosuvastatin due to side effects (severe myalgia and weakness) Have advised him that if his cholesterol levels are still significantly elevated on his labs when he gets them done, we will then have to consider starting him on one of the new injectable PCSK9 inhibitors Will have him recheck his labs and fasting lipids in 6 months for follow up as well (2) Hearing loss: Code(s): H91.90 - Unspecified hearing loss, unspecified ear Category: Medical Qualifiers: Hearing loss type: unspecified Laterality: bilateral Qualified Code(s): H91.93 - Unspecified hearing loss, bilateral Plan: Patient was referred for a hearing evaluation previously and they have confirmed his hearing loss States that he is not yet at a point where he will need hearing aids but is aware that he will need amplification at some point (3) Overweight (BMI 25.0-29.9): Code(s): E66.3 - Overweight Category: Medical Plan: Reinforced diet/exercise as tolerated/lose weight Plan To return in 6 months for his next annual physical examination Orders: Orders Comprehensive [place]. Panel Fast 12/28/24 E78.00 - Pure hypercholesterolemia, unspecified Lipid Panel 12/28/24 E78.00 - Pure hypercholesterolemia, unspecified UA CC w/rflx Micro + Cult 12/28/24 R30.0 - Dysuria Homocysteine 12/28/24 Z86.718 - Personal history of other venous thrombosis and embolism UA CC w/rflx Micro + Cult 6 Months R30.0 - Dysuria, Z00.00 - Encounter for general adult medical examination without abnormal findings Prostate Specific Antigen 6 Months N40.0 - Benign prostatic hyperplasia without lower urinary tract symptoms, Z00.00 - Encounter for general adult medical examination without abnormal findings Complete Blood Count Auto Diff 12/28/24 D64.9 - Anemia, unspecified TSH reflex Free T4 12/28/24 E78.00 - Pure hypercholesterolemia, unspecified Vitamin D 25-OH Total 12/28/24 E55.9 - Vitamin D deficiency, unspecified Complete Blood Count Auto Diff 6 Months D64.9 - Anemia, unspecified, Z00.00 - Encounter for general adult medical examination without abnormal findings Comprehensive [place]. Panel Fast 6 Months E78.00 - Pure hypercholesterolemia, unspecified, Z00.00 - Encounter for general adult medical examination without abnormal findings Lipid Panel 6 Months E78.00 - Pure hypercholesterolemia, unspecified, Z00.00 - Encounter for general adult medical examination without abnormal findings
== END 2024-12-28 15:58 | disposition home or self-care (01) ==
LOC: HO.HMCH 15:26
PROVIDERS: PCP Internal Medicine; Visit Provider Internal Medicine
DX: E78.00 Pure hypercholesterolemia, unspecified (principal); H91.93 Unspecified hearing loss, bilateral; E66.3 Overweight

== ENCOUNTER → 2024-12-28 15:25 | Outpatient (BNVA) | payer BC, SELFPAY | PROVIDERS: PCP Internal Medicine; Visit Provider Internal Medicine | DX: E78.00 Pure hypercholesterolemia, unspecified (principal); H91.93 Unspecified hearing loss, bilateral; E66.3 Overweight; Z68.28 Body mass index [BMI] 28.0-28.9, adult | CPT/HCPCS: 96127 ==

== ENCOUNTER 2024-12-29 08:06 | Outpatient (REF) | payer BC, SELFPAY ==
[2024-12-29 08:24] LABS: MANUAL DIFF FLAG NO
[2024-12-29 08:32] LABS: Basophils Percent Auto 0.5 % (0-2); Eosinophils Absolute Auto 0.1 X10*3/uL (0.0-0.4); Hemoglobin 14.7 g/dl (14.0-18.0); Imm Gran Abs Auto 0.01 X10*3/uL (0.00-0.03); Imm Gran Pct Auto 0.2 % (0.0-0.4); Lymphocytes Absolute Auto 1.2 X10*3/uL (1.2-4.9); Lymphocytes Percent Auto 30.1 % (20-40); Mean Corpuscular HGB Conc 33.4 g/dl (31.0-36.0); Mean Corpuscular Hemoglobin 30.7 pg (27.0-33.0); Mean Corpuscular Volume 91.9 fL (80.0-98.0); Mean Platelet Volume 9.4 fL (9.4-12.4); Monocytes Absolute Auto 0.4 X10*3/uL (0.1-1.2); Monocytes Percent Auto 10.3 % (2-11); Neutrophils Absolute Auto 2.3 x10*3/uL (2.0-8.3); Neutrophils Percent Auto 56.9 % (45-73); Platelet Count 188 X10*3/uL (160-400); Red Blood Count 4.79 X10*6/uL (4.60-5.80); Red Cell Distribution Width 12.9 % (11.0-16.0); White Blood Count 4.1 X10*3/uL (4.8-10.8)
[2024-12-29 09:20] LABS: Alanine Aminotransferase 27 U/L (0-40); Albumin Level 4.3 g/dL (3.5-5.0); Alkaline Phosphatase 39 U/L (39-117); Anion Gap 9 (12-20); Aspartate Amino Transferase 33 U/L (5-37); Bilirubin Total 0.8 mg/dL (0.0-1.0); Blood Urea Nitrogen 19 mg/dL (9-16); Calcium 9.4 mg/dL (8.4-10.2); Carbon Dioxide 29 mmol/L (22-29); Chloride 108 mmol/L (96-108); Cholesterol 265 mg/dL (<200); Estimated Glomerular Filt Rate > 60; Glucose Fasting 95 mg/dL (60-99); HDL Cholesterol 64 mg/dL (>40); LDL Cholesterol Calculated 183 mg/dL (<100); Potassium 4.8 mmol/L (3.3-5.1); Sodium 141 mmol/L (135-145); Total Protein 6.9 g/dL (6.5-8.0); Triglycerides 94 mg/dL (<150)
[2024-12-29 09:23] LABS: Appearance Urine Clear; Color Urine Yellow; Glucose Urine UA Negative (Negative); Leukocyte Esterase Urine Negative (Negative); Nitrite Urine Negative (Negative); PH 5.5 (5.0-9.0); Specific Gravity - Urine >= 1.030 (1.005-1.025); Urine Blood Negative (Negative); Urine Ketones Negative (Negative); Urine Protein Negative (Neg-Trace)
[2024-12-29 09:37] LABS: TSH reflex Free T4 0.84 uIU/mL (0.32-4.0)
[2024-12-30 17:43] LABS: Homocysteine 11.3 umol/L (<11.4)
== END 2024-12-29 08:07 | disposition home or self-care (01) ==
LOC: HO.LAB 08:06
PROVIDERS: PCP Internal Medicine; Visit Provider Internal Medicine
DX: Z00.00 Encounter for general adult medical examination without abnormal findings (principal); I10 Essential (primary) hypertension; M79.10 Myalgia, unspecified site; R25.2 Cramp and spasm; E55.9 Vitamin D deficiency, unspecified; E78.00 Pure hypercholesterolemia, unspecified; Z86.718 Personal history of other venous thrombosis and embolism; R30.0 Dysuria
CPT/HCPCS: 36415; 80053; 80061; 81003; 82306; 83090; 84443; 85025

== ENCOUNTER 2025-08-02 06:20 | Outpatient (REF) | payer BC, SELFPAY ==
[2025-08-02 06:58] LABS: MANUAL DIFF FLAG NO
[2025-08-02 07:34] LABS: Appearance Urine Clear; Glucose Urine UA Negative (Negative); PH 5.5 (5.0-9.0); Specific Gravity - Urine >= 1.030 (1.005-1.025)
[2025-08-02 07:48] LABS: Alanine Aminotransferase 26 U/L (0-40); Albumin Level 4.4 g/dL (3.5-5.0); Alkaline Phosphatase 48 U/L (39-117); Anion Gap 12 (12-20); Aspartate Amino Transferase 36 U/L (5-37); Blood Urea Nitrogen 21 mg/dL (9-16); Calcium 9.3 mg/dL (8.4-10.2); Carbon Dioxide 26 mmol/L (22-29); Chloride 106 mmol/L (96-108); Cholesterol 251 mg/dL (<200); Estimated Glomerular Filt Rate > 60; HDL Cholesterol 62 mg/dL (>40); Potassium 4.1 mmol/L (3.3-5.1); Sodium 140 mmol/L (135-145); Total Protein 6.9 g/dL (6.5-8.0); Triglycerides 65 mg/dL (<150)
[2025-08-02 07:54] LABS: Hematocrit 43.1 % (42.0-52.0); Hemoglobin 14.5 g/dl (14.0-18.0); Imm Gran Abs Auto 0.01 X10*3/uL (0.00-0.03); Imm Gran Pct Auto 0.2 % (0.0-0.4); Lymphocytes Absolute Auto 1.4 X10*3/uL (1.2-4.9); Mean Corpuscular HGB Conc 33.6 g/dl (31.0-36.0); Mean Corpuscular Hemoglobin 30.9 pg (27.0-33.0); Mean Corpuscular Volume 91.7 fL (80.0-98.0); NRBC Abs Auto 0.000 X10*3/uL (0.0-0.012); NRBC Pct Auto 0.0 /100WBC (0.0-0.2); Platelet Count 214 X10*3/uL (160-400); Red Blood Count 4.70 X10*6/uL (4.60-5.80); White Blood Count 4.6 X10*3/uL (4.8-10.8)
[2025-08-02 08:05] LABS: Prostate Specific Antigen 0.68 ng/mL (<0.05-4.0)
== END 2025-08-02 06:21 | disposition home or self-care (01) ==
LOC: HO.LAB 06:20
PROVIDERS: PCP Internal Medicine; Visit Provider Internal Medicine
DX: Z00.00 Encounter for general adult medical examination without abnormal findings (principal); N40.0 Benign prostatic hyperplasia without lower urinary tract symptoms; D64.9 Anemia, unspecified; E78.00 Pure hypercholesterolemia, unspecified; R30.0 Dysuria; Z12.5 Encounter for screening for malignant neoplasm of prostate
CPT/HCPCS: 36415; 80053; 80061; 81003; 84153; 85025

== ENCOUNTER 2025-08-04 08:13 | Outpatient (AMB) | payer BC, SELFPAY ==
[2025-08-04 08:17] VITALS: BP 102/60; PULSE 58; RESP 18; TEMP 36.2; O2SAT 99; BMI 28.7
--- NOTE | 2025-08-04 08:17 | A.OFFPC_ITS ---
Vital Signs 08/04/25 08:17 Height 5 ft 11 in Weight 205 lb 8 oz BMI 28.7 BP 102/60 Blood Pressure Location Lt brachial Position Sitting Respiration 18 Pulse 58 Pulse Source Pulse Oximeter Temp 97.1 F Temp Source Temporal Artery Scan Pulse Oximetry (%) 99 Oxygen Delivery Method Room Air Intake Visit Reasons: Annual Exam [employer] Specialist Required: No Accompanied by: Self / Same As Patient Allergies rosuvastatin Adverse Reaction (Severe, Verified 08/04/25 08:29) Weakness, muscle pain atorvastatin Adverse Reaction (Intermediate, Uncoded 08/04/25 08:29) muscle weakness, cramps Medication List - Last Reconciled 08/04/25 by CESAR Nunez No Known Home Meds Tobacco use date assessed: 08/04/25 Dental Screening Dental Screen Date: 08/04/25 Did you have a dental visit in the last 12 months?: Yes Did you have a dental problem in the last 6 months where you did not have access to dental care?: No Was dental information given to patient?: Patient has dentist HPI Annual Exam HPI Details Dentist: up to date Eye: not in 3 years Snellen: Right: Left: Corrected vision: yes, glasses STI screening: Colonoscopy: 2021, due 2031 Pap Smer:n/a PHQ-9: Flu: no COVID: x2 Tdap:2014, wants to wait on get this done Diet: regular diet Exercise: Runs 3 times a day The patient is a 59-year-old male presenting for a follow-up visit to review lab results and discuss new concerns including epistaxis and a neck lump. The patient's total cholesterol is 251 mg/dL and LDL 176. Reports that this has remained similar for years. He refuses medication for hypercholesterolemia, citing side effects of lethargy and sickness which impaired his ability to run. He acknowledges his diet has recently been poor, involving junk food, and has resulted in a 10-pound weight gain. The patient reports recurrent epistaxis from the left nostril, which has become more frequent in the last week, occurring every other day. The bleeding episodes often occur in the morning after a shower and can last for about 10 minutes. He has not used any nasal sprays. Reports seeing Dr. Rosales in the past and was told that there is nothing he could do about this. He also notes a small, reducible, ball-like lump on his neck that has been present for a couple of weeks. Regarding health maintenance, he had a dental visit a couple of weeks ago and his last colonoscopy was in 2021, with follow-up recommended in 10 years. He has not had an eye exam in 3-4 years and wears glasses. He declines the flu vaccine but has received two COVID-19 vaccines. His last tetanus shot was in 2014, and wants to hold off on getting this as well. [facility] Medical History Hearing loss Overweight (BMI 25.0-29.9) Pure hypercholesterolemia History of adenomatous polyp of colon Surgical History History of colonoscopy (~06/29/22) H/O colonoscopy (~09/2015) History of appendectomy History of repair of ACL Family History Mother Breast cancer Social History Housing: House Alcohol intake: current Alcohol intake frequency: a few times a month Alcohol type: beer Patient Tobacco Use Status: Never used Tobacco e-Cigarette/Vaping Use: Never Used Second Hand Smoke Exposure: No service: No Current occupational status: employed 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 1. Little interest or pleasure in doing things: not at all 2. Feeling down, depressed, or hopeless: not at all 3. Trouble falling or staying asleep, or sleeping too much: not at all 4. Feeling tired or having little energy: not at all 5. Poor appetite or overeating: not at all 6. Feeling bad about yourself - or that you are a failure or have let yourself or your family down: not at all 7. Trouble concentrating on things, such as reading the newspaper or watching television: not at all 8. Moving or speaking so slowly that other people could have noticed. Or the opposite - being so fidgety or restless that you have been moving around a lot more than usual: not at all 9. Thoughts that you would be better off or of hurting yourself in some way: not at all Total score: 0 Source: Developed by Drs. Mina Kauffman, Smiley Marrero, Cristobal Jeffers and colleagues, with an educational charles from [employer]. Thrive Questionnaire Date Thrive assessed: 12/28/24 I am a: Patient What is your living situation today?: I have a steady place to live Within the past 12 months, did the food you bought not last and you didn't have the money to get more?: I choose not to answer this question Within the past 12 months, did you worry whether your food would run out before you got money to buy more?: I choose not to answer this question Do you have trouble paying for medicines?: No Do you have trouble getting transportation to medical appointments?: No Do you have trouble paying your heating and electricity bill?: No Do you have trouble taking care of your child, family member or friend?: No Do you have trouble with day-to-day activities such as bathing, preparing meals, shopping, managing finances, etc.?: No Are you currently unemployed and looking for a job?: No Are you interested in more education?: Yes Please select the resources that you would like help with: None Currently or been in a relationship where the following occur: No concerns reported THRIVE Score: 0 AUDIT C Alcohol Use Questionnaire (AUDIT-C) 1. How often do you have a drink containing alcohol?: 2-4 times a month Total Score: 2 FADI-7 AMB Questionnaire FADI-7 Date FADI - 7 assessed: 12/28/24 Feeling nervous, anxious, or on edge: 0 = Not at all Not being able to stop or control worryin = Not at all Worrying too much about different things: 0 = Not at all Trouble relaxin = Not at all Being so restless that it is hard to sit still: 0 = Not at all Becoming easily annoyed or irritable: 1 = Several days Feeling afraid as if something awful might happen: 0 = Not at all Total FADI-7 score (0-4 normal; 5-9 mild; 10-14 moderate; 15-21 severe): 1 Source: Developed by Drs. Mina Kauffman, Smiley Marrero, Cristobal Jeffers and colleagues, with an educational charles from [employer]. Review of Systems Const Denies headache(s) Eyes Denies loss of vision ENT Denies vertigo, Denies dizziness, Denies headache(s), Reports epistaxis (Recurrent from left nostril) and Denies sore throat Card Denies chest pain, Denies leg edema and Denies lightheadedness Resp Denies cough, Denies hemoptysis and Denies wheezing GI Denies abdominal pain, Denies melena, Denies constipation, Denies diarrhea, Denies vomiting and Reports other (Periumbilical lump) Denies dysuria, Denies urinary frequency and Denies urinary urgency Musc Denies arthralgias, Denies joint swelling, Denies numbness and Denies tingling Neuro Denies Abnormal speech present, Denies behavioral changes, Denies vertigo, Denies dizziness, Denies headache(s), Denies loss of vision, Denies memory loss, Denies numbness and Denies tingling Psych Denies anxiety, Denies behavioral changes, Denies depression, Denies memory loss and Denies panic attacks Meir/Lymph Denies easy bleeding and Denies easy bruising Aller/Immun Denies wheezing Physical exam (Primary Care) Vital Signs: Last Vital Signs Temp 97.1 F 08/04/25 08:17 Pulse 58 08/04/25 08:17 Resp 18 08/04/25 08:17 BP 102/60 08/04/25 08:17 Pulse Ox 99 08/04/25 08:17 Oxygen Delivery Method Room Air 08/04/25 08:17 BMI result Body Mass Index 28.7 Tobacco/Smoking Status: Tobacco use Status Tobacco use date assessed 08/04/25 08/04/25 08:20 Patient Tobacco Use Status Never used Tobacco 08/04/25 08:20 e-Cigarette/Vaping Use Never Used 08/04/25 08:20 PHQ-9: PHQ-9 Score PHQ-9: Total score 0 08/04/25 08:22 Thrive Assessment: Date of Thrive Assessment Date Thrive assessed 12/28/24 08/04/25 08:20 Currently or been in a relationship where the following occur: No concerns reported Const General: healthy appearing, no acute distress, alert and awake Nutritional Appearance: well nourished Orientation/consciousness: oriented to person, oriented to place and oriented to time HENMT Ears: TM's normal bilaterally General nose exam: Normal nasal mucous membranes and turbinates present and Epistaxis present on the left (Small irritated area noted in left nostril, no active bleeding) Eyes Conjunctivae: conjunctivae normal Sclerae: sclerae normal Pupils: Equal, round and reactive pupils present Neck Neck: Yes no lymphadenopathy and Yes no JVD Thyroid: Thyroid normal Carotids: no bruits Resp Effort & Inspection: normal respiratory effort and not tachypneic Auscultation: no crackles, no rales, no rhonchi and no wheezes Cardio Rate: regular rate Rhythm: regular rhythm Heart sounds: no murmurs and normal S1 and S2 GI Palpation (GI): Soft to palpation, nontender, no hepatomegaly and no splenomegaly Auscultation: normal bowel sounds Skin General skin exam: no rashes or lesions noted and dry skin Neuro General: oriented to person, oriented to place and oriented to time Cranial nerves: Yes Equal, round and reactive pupils present Speech: No Abnormal speech present Gait exam (Neuro): Normal gait present Motor exam (neuro): no tremor noted Deep tendon reflexes (DTR's): Right triceps reflex intensity grade: 2+, Left triceps reflex intensity grade: 2+, Rt Biceps (C5, C6): 2+, Left biceps reflex intensity grade: 2+, Right brachioradialis reflex intensity grade: 2+, Left brachioradialis reflex intensity grade: 2+, Right patellar reflex intensity grade: 2+ and Left patellar reflex intensity grade: 2+ Extrem Right upper extremity: full ROM Left upper extremity: full ROM Right lower extremity: full ROM; no edema Left lower extremity: full ROM; no edema Psych Mental Status: mental status grossly normal Speech and movement: Normal speech and movement present Affect: normal affect Attitude: cooperative Thought process: Normal thought process present Results Reviewed Results Reviewed: Laboratory Tests 08/02/25 08/02/25 06:49 06:55 WBC 4.6 L RBC 4.70 Hgb 14.5 Hct 43.1 MCV 91.7 MCH 30.9 MCHC 33.6 RDW 12.7 Plt Count 214 Sodium 140 Potassium 4.1 Chloride 106 Carbon Dioxide 26 Anion Gap 12 BUN 21 H Creatinine 0.92 Estimated GFR > 60 Fasting Glucose 91 Calcium 9.3 Total Bilirubin 0.9 AST 36 ALT 26 Alkaline Phosphatase 48 Total Protein 6.9 Albumin 4.4 Triglycerides 65 Cholesterol 251 H LDL Cholesterol, Calc 176 H HDL Cholesterol 62 Prostate Specific Ag 0.68 Urine Color Yellow Urine Appearance Clear Urine pH 5.5 Ur Specific [place] >= 1.030 H Urine Protein Negative Urine Glucose (UA) Negative Urine Ketones Negative Urine Blood Negative Urine Nitrite Negative Ur Leukocyte Esterase Negative Coding Level of Care Code Est Pt Prev Care 40-64y(53505) Diagnoses Annual physical exam Z00.00 Pure hypercholesterolemia E78.00 Tinnitus, bilateral H93.13 Overweight (BMI 25.0-29.9) E66.3 Epistaxis R04.0 Periumbilic swelling, mass or lump R19.05 Time Spent (min) 36 Assessment & Plan Assessment & Plan (1) Annual physical exam: Code(s): Z00.00 - Encounter for general adult medical examination without abnormal findings Category: Medical Plan: Preventative guidelines and recent labs reviewed with the patient He is up-to-date with his cancer screenings - his colonoscopy was last done a couple of years ago on 06/29/[address] Mora and his next colonoscopy will be in 2031 (10 year recall) (2) Pure hypercholesterolemia: Code(s): E78.00 - Pure hypercholesterolemia, unspecified Category: Medical Plan: The patient total cholesterol is 251 and LDL 176 mg/dL Apparently the patient was placed in atorvastatin and was unable to tolerate this medication. He was also tried on rosuvastatin 5 mg and stopped taking this medication as well due to myalgia. We will continue to monitor the patient's cholesterol. The patient continues to refuse medication due to adverse effects and will focus on dietary changes. He will be provided with a list of low-cholesterol foods. We will repeat labs in six months to re-evaluate. 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 (4) Overweight (BMI 25.0-29.9): Code(s): E66.3 - Overweight Category: Medical Plan: Reinforced diet/exercise as tolerated/lose weight (5) Epistaxis: Code(s): R04.0 - Epistaxis Category: Medical Plan: The patient's recurrent nosebleeds are thought to be caused by dryness. I have recommended he try Afrin nasal spray to help stop bleeding episodes. He was also instructed to apply pressure to the nose during an active bleed. (6) Periumbilic swelling, mass or lump: Code(s): R19.05 - Periumbilic swelling, mass or lump Category: Medical Plan: The periumbilical lump noted on exam. An abdominal ultrasound ordered to further evaluate. Plan Follow up in 6 months Orders: Orders Comprehensive [place]. Panel Fast 6 Months E66.3 - Overweight, E78.00 - Pure hypercholesterolemia, unspecified, H91.93 - Unspecified hearing loss, bilateral, H93.13 - Tinnitus, bilateral Lipid Panel 6 Months E66.3 - Overweight, E78.00 - Pure hypercholesterolemia, unspecified, H91.93 - Unspecified hearing loss, bilateral, H93.13 - Tinnitus, bilateral Complete Blood Count Auto Diff 6 Months E66.3 - Overweight, E78.00 - Pure hypercholesterolemia, unspecified, H91.93 - Unspecified hearing loss, bilateral, H93.13 - Tinnitus, bilateral UA CC w/rflx Micro + Cult 6 Months E66.3 - Overweight, E78.00 - Pure hypercholesterolemia, unspecified, H91.93 - Unspecified hearing loss, bilateral, H93.13 - Tinnitus, bilateral US abdomen limited Today R19.05 - Periumbilic swelling, mass or lump
== END 2025-08-04 08:59 | disposition home or self-care (01) ==
LOC: HO.HMCH 08:14
PROVIDERS: PCP Internal Medicine
DX: Z00.00 Encounter for general adult medical examination without abnormal findings (principal); E78.00 Pure hypercholesterolemia, unspecified; H93.13 Tinnitus, bilateral; E66.3 Overweight; R04.0 Epistaxis; R19.05 Periumbilic swelling, mass or lump